=== PATIENT | male | born 1990 ===

== ENCOUNTER 2017-07-30 13:36 | Emergency (ER) | payer SELFPAY ==
[2017-07-30 14:02] VITALS: BMI 22.4
[2017-07-30 14:03] VITALS: BP 112/75; PULSE 76; RESP 18; TEMP 98.7; O2SAT 100
--- NOTE | 2017-07-30 14:51 | C.PDOC ---
History Of Present Illness 26 year old male presents to the ED c/o throat pain, pain while swallowing for the past 2 days. Patient states he noticed some white patches on his tonsils. Patient denies cough, fever, chills, nausea, vomit, diarrhea, abdominal pain, recent travel, sick contacts. Time Seen by Provider: 07/30/17 14:31 Chief Complaint (Nursing): ENT Problem History Per: Patient History/Exam Limitations: no limitations Onset/Duration Of Symptoms: Days Current Symptoms Are (Timing): Still Present Location Of Pain: Throat Sick Contacts (Context): None Associated Symptoms: Sore Throat. denies: Fever, Cough Ear Symptoms: Bilateral: None Recent travel outside of the [place]: No Additional History Per: Patient Past Medical History Reviewed: Historical Data, Nursing Documentation, Vital Signs Vital Signs: Last Vital Signs Temp 98.7 F 07/30/17 14:02 Pulse 76 07/30/17 14:02 Resp 18 07/30/17 14:02 BP 112/75 07/30/17 14:02 Pulse Ox 100 07/30/17 14:51 - Medical History PMH: Asthma Surgical History: No Surg Hx Family History: States: Unknown Family Hx - Social History Hx Alcohol Use: No Hx Substance Use: No - Immunization History Hx Tetanus Toxoid Vaccination: No Hx Influenza Vaccination: No Hx Pneumococcal Vaccination: No Review Of Systems Constitutional: Negative for: Fever, Chills ENT: Positive for: Throat Pain Cardiovascular: Negative for: Chest Pain, Palpitations Respiratory: Negative for: Cough, Shortness of Breath Gastrointestinal: Negative for: Nausea, Vomiting, Abdominal Pain Skin: Negative for: Rash Neurological: Negative for: Weakness, Numbness Physical Exam - Physical Exam Appears: Non-toxic, No Acute Distress Skin: Normal Color, Warm, Dry Head: Atraumatic, Normacephalic Eye(s): bilateral: Normal Inspection, PERRL, EOMI Ear(s): Bilateral: Normal Nose: No Discharge, No Deformity Oral Mucosa: Moist Throat: Erythema (tonsilar hypertrophy), Exudate (scant) Neck: Normal ROM, Supple Lymphatic: Adenopathy (tenderness B/L cervical ) Neurological/Psych: Oriented x3, Normal Speech, Normal Cognition Gait: Steady ED Course And Treatment O2 Sat by Pulse Oximetry: 100 (On RA) Pulse Ox Interpretation: Normal Medical Decision Making Medical Decision Making: Impression : pharyngitis Plan: * Amoxicillin 500 mg PO * Motrin 600 mg PO Disposition Counseled Patient/Family Regarding: Studies Performed, Diagnosis, Need For Followup, Rx Given - Disposition Referrals: [facility] [Outside] Disposition: HOME/ ROUTINE Disposition Time: 14:49 Condition: STABLE Additional Instructions: follow up with doctor in 2 days call to make an appointment continue medications at home return to ER if symptoms worsens or progress Prescriptions: Amoxicillin 875 mg PO BID #20 tablet Naproxen [Naprosyn] 500 mg PO BID PRN #16 tab PRN Reason: Pain, Moderate (4-7) Instructions: Pharyngitis (ED) Forms: [employer] (Surinamese) - Clinical Impression Clinical Impression: Pharyngitis - Scribe Statement The provider has reviewed the documentation as recorded by the Scribe Ab Thomas All medical record entries made by the Scribe were at my direction and personally dictated by me. I have reviewed the chart and agree that the record accurately reflects my personal performance of the history, physical exam, medical decision making, and the department course for this patient. I have also personally directed, reviewed, and agree with the discharge instructions and disposition.
[2017-07-30] MEDS ORDERED: Amoxicillin 250 mg/5 ml Susp (100 ml) ONE (15:02)
== END 2017-07-30 15:26 | disposition home or self-care (01) ==
LOC: C.ER 13:36
DX: J02.9 Acute pharyngitis, unspecified (principal)

== ENCOUNTER 2018-01-26 06:29 | Emergency (ER) | payer SELFPAY ==
[2018-01-26 06:30] VITALS: BMI 22.4
[2018-01-26] MEDS ORDERED: Acetaminophen-Codeine 300/30 mg Tab PO STA (07:39)
--- NOTE | 2018-01-26 07:42 | C.PDOC ---
History Of Present Illness 27 y/o male presents to the ER complaining of pain and swelling to the left lower jaw which has been present for the past 2 days. Patient denies having difficulty swallowing and difficulty talking. Time Seen by Provider: 01/26/18 07:14 Chief Complaint (Nursing): Dental Pain History Per: Patient History/Exam Limitations: no limitations Onset/Duration Of Symptoms: Days Current Symptoms Are (Timing): Still Present Severity: Moderate Past Medical History Reviewed: Historical Data, Nursing Documentation, Vital Signs Vital Signs: Last Vital Signs Temp 98.8 F 01/26/18 07:58 Pulse 67 01/26/18 07:58 Resp 20 01/26/18 07:58 BP 150/91 H 01/26/18 07:58 Pulse Ox 98 01/26/18 09:08 - Medical History PMH: Asthma Surgical History: No Surg Hx Family History: States: No Known Family Hx - Social History Hx Alcohol Use: No Hx Substance Use: No - Immunization History Hx Tetanus Toxoid Vaccination: No Hx Influenza Vaccination: No Hx Pneumococcal Vaccination: No Review Of Systems Except As Marked, All Systems Reviewed And Found Negative. Constitutional: Negative for: Fever, Chills ENT: Positive for: Other (pain and swelling to lower jaw ) Physical Exam - Physical Exam Appears: Non-toxic, No Acute Distress Skin: Normal Color, Warm, Dry Head: Atraumatic, Normacephalic, Swelling (swelling to left side of jaw) Eye(s): bilateral: Normal Inspection Nose: Normal Oral Mucosa: Moist Teeth: Normal Dentition, No Caries, Other (swollen gum covered area in 3rd molar ) Gingiva: Swelling Neck: Supple Chest: Symmetrical Cardiovascular: Rhythm Regular Respiratory: Normal Breath Sounds, No Rales, No Rhonchi, No Wheezing Extremity: Normal ROM Neurological/Psych: Oriented x3, Normal Speech ED Course And Treatment O2 Sat by Pulse Oximetry: 98 (RA) Pulse Ox Interpretation: Normal Progress Note: Patient treated with Penicillin VK and Tylenol/ Codeine PO. Patient has been discharged and instructed to follow up with dentist in 1-2 days. Disposition - [facility] Disposition: HOME/ ROUTINE Disposition Time: 07:39 Condition: STABLE Additional Instructions: Follow up with Dentist within 1-2 days. Return to ED if feel worse. Prescriptions: Ibuprofen [Motrin Tab] 600 mg PO Q8 #30 tab Penicillin VK [Penicillin VK Tab] 500 mg PO Q6 #28 tab Acetaminophen with Codeine [Tylenol with Codeine No. 3 300 mg-30 mg] 1 tab PO Q6 #10 tab Instructions: Dental Specialists Forms: [employer] [facility] - Clinical Impression Clinical Impression: Pain, dental - PA / MANAGER OF COMPLIANCE / Resident Statement MD/DO has reviewed & agrees with the documentation as recorded. - Scribe Statement The provider has reviewed the documentation as recorded by the Grace Hayward Provider Attestation All medical record entries made by the Grace were at my direction and personally dictated by me. I have reviewed the chart and agree that the record accurately reflects my personal performance of the history, physical exam, medical decision making, and the department course for this patient. I have also personally directed, reviewed, and agree with the discharge instructions and disposition.
[2018-01-26] MEDS ORDERED: Acetaminophen-Codeine 300/30 mg Tab PO ONE (07:50)
[2018-01-26 07:59] VITALS: BP 150/91; PULSE 67; RESP 20; TEMP 98.8
[2018-01-26 08:54] VITALS: O2SAT 98
== END 2018-01-26 07:59 | disposition home or self-care (01) ==
LOC: C.ER 06:29
DX: K08.89 Other specified disorders of teeth and supporting structures (principal)

== ENCOUNTER 2018-02-14 07:13 | Emergency (ER) | payer SELFPAY ==
[2018-02-14 07:14] VITALS: BMI 22.4
[2018-02-14 07:29] VITALS: BP 142/85; PULSE 83; RESP 20; TEMP 98.5; O2SAT 98
--- NOTE | 2018-02-14 07:50 | C.PDOC ---
History Of Present Illness 27yo male, comes to ER for evaluation of a persistent and painless left lower jaw/face swelling. Patient was seen in this ER for similar complaints on 01/26 and given antibiotics which he has completed. He reports he has bee waiting for the swelling to decrease before following up with a dentist. He denies any fever , chills, and offers no other complaints. Time Seen by Provider: 02/14/18 07:43 Chief Complaint (Nursing): Dental Pain History Per: Patient History/Exam Limitations: no limitations Onset/Duration Of Symptoms: Persistent Current Symptoms Are (Timing): Still Present Recent travel outside of the [place]: No Additional History Per: Patient Past Medical History Reviewed: Historical Data, Nursing Documentation, Vital Signs Vital Signs: Last Vital Signs Temp 98.5 F 02/14/18 07:25 Pulse 83 02/14/18 07:25 Resp 20 02/14/18 07:25 BP 142/85 02/14/18 07:25 Pulse Ox 98 02/14/18 07:50 - Medical History PMH: Asthma Surgical History: No Surg Hx Family History: States: No Known Family Hx - Social History Hx Alcohol Use: No Hx Substance Use: No - Immunization History Hx Tetanus Toxoid Vaccination: No Hx Influenza Vaccination: No Hx Pneumococcal Vaccination: No Review Of Systems Except As Marked, All Systems Reviewed And Found Negative. Constitutional: Negative for: Fever, Chills ENT: Positive for: Other (left lower jaw/face swelling). Negative for: Throat Pain Respiratory: Negative for: Cough Gastrointestinal: Negative for: Vomiting Physical Exam - Physical Exam Appears: Non-toxic, No Acute Distress Skin: Normal Color Head: Atraumatic, Normacephalic, Swelling (mild left lower facial swelling vs. edema. no erythema, warmth, fluctuance or tenderness noted. no signs of cellulitis noted.) Eye(s): bilateral: Normal Inspection, PERRL, EOMI Nose: Normal, No Discharge Oral Mucosa: Moist Tongue: Normal Appearing, No Swelling Lips: Normal Appearing, No Swelling Teeth: Normal Dentition, No Tender To Palpation Gingiva: Normal Appearing, No Swelling, No Abscess Neck: Supple Cardiovascular: Rhythm Regular Respiratory: Normal Breath Sounds Neurological/Psych: Oriented x3 ED Course And Treatment O2 Sat by Pulse Oximetry: 98 (RA) Pulse Ox Interpretation: Normal Medical Decision Making Medical Decision Making: persistent L lower jaw/dental discomfort with mild facial swelling no dental abscess no fevers no facial cellulitis pt has dental f/u closeby pending no further w/u indicated now. pt deferred d/c paperwork. [place] MANAGER STRATEGIC reviewed, patient had Tylenol w/ codeine, and no other narcotics prescribed. Disposition Doctor Will See Patient In The: Office Counseled Patient/Family Regarding: Studies Performed, Diagnosis - Disposition Referrals: [facility] [Outside] [facility] [Outside] [facility] [Outside] Disposition: HOME/ ROUTINE Disposition Time: 07:50 Condition: GOOD Additional Instructions: f/u with local dentistry [facility]- Call or present for appt. Instructions: Dental Pain (DC) Forms: [facility] (Kinyarwanda) - Clinical Impression Clinical Impression: Dentalgia - Scribe Statement The provider has reviewed the documentation as recorded by the Grace Mclean Provider Attestation: All medical record entries made by the Grace were at my direction and personally dictated by me. I have reviewed the chart and agree that the record accurately reflects my personal performance of the history, physical exam, medical decision making, and the department course for this patient. I have also personally directed, reviewed, and agree with the discharge instructions and disposition.
== END 2018-02-14 07:55 | disposition home or self-care (01) ==
LOC: C.ER 07:13
DX: K08.89 Other specified disorders of teeth and supporting structures (principal)